=== PATIENT | female | born 1995 | race Hispanic/Latino ===

== ENCOUNTER 2018-04-19 20:14 | Emergency (ER) | payer SELFPAY ==
[2018-04-19 20:52] LABS: Urine Blood NEGATIVE (NEG); Urine Glucose NEGATIVE (NEG); Urine Protein NEGATIVE (NEG); Urine pH 5.5 (5.0-7.0)
[2018-04-19 21:00] LABS: Urine Bacteria <20 /HPF (<20); Urine Culture Reflex Order REFLEXED; Urine Mucus 1+ /HPF (NONE SEEN); Urine RBC <5 /HPF (NONE SEEN)
[2018-04-19 21:23] LABS: Absolute Lymphocytes (CBC) 1.8 K/uL (0.7-4.9); Absolute Monocytes 0.8 K/uL (0.1-1.3); Absolute Neutrophil 10.3 K/uL (1.8-8.0); Basophils % 0.3 % (0-1.3); Eosinophils % 0.8 % (0-4.4); Hematocrit 40.6 % (36.0-45.0); Lymphocytes % 14.1 % (15.3-44.8); MCH 29.4 pg (27.0-35.0); MCV 87.6 fL (80-100); MPV 9.2 fL (7.6-11.3); Monocytes % 5.8 % (3.3-12.3); RBC Red Blood Cell Count 4.64 M/uL (3.86-4.86)
--- NOTE | 2018-04-19 22:01 | RAD REPORT ---
EXAM DESCRIPTION: US - Transvaginal OB - 04/19/2018 9:40 pm CLINICAL HISTORY: with abdominal pain COMPARISON: None. FINDINGS: The uterus measures 7 x 4 x 5 centimeters. A gestational sac is present within the endom etrium whicjh measures 2.2 x.4 x.6 cm. Within this is a yolk sac and pole with a crown-rump ericka gth 2 mm. Cardiac activity 93 beats per minute The ovaries are normal in size and echotexture. No significant free fluid is seen. IMPRESSION: Single live intrauterine with an estimated gestational age 5 weeks 5 days H[facility]ACE 12/15/2017 Cardiac activity 93 beats per minute
[2018-04-19] MEDS ORDERED: CEFTRIAXONE/SWI 1gm 1 GM/10 ML SYR ONE (22:30)
[2018-04-19 22:50] LABS: BUN Blood Urea Nitrogen 5 mg/dL (7-18); Bicarbonate 27 mmol/L (21-32); Glucose Level 81 mg/dL (74-106); HCG, Quantitative 15284 mIU/mL (1-3); Potassium 3.4 mmol/L (3.5-5.1); Sodium Level 140 mmol/L (136-145)
--- NOTE | 2018-04-19 23:42 | EDPHYS ---
Physician Documentation [facility] Name: Citlali Limon Age: 22 yrs Sex: Female : 1995 Arrival Date: 04/19/2018 Time: 20:16 Bed 16 Private MD: ED Physician Tom Mccann HPI: 04/19 23:38 This 22 yrs old Female presents to ER via Ambulatory with complaints of pm1 Abdominal Pain. 23:38 The patient presents with abdominal pain suprapubic. Onset: The symptoms/episode pm1 began/occurred today. The symptoms do not radiate. Associated signs and symptoms: Pertinent negatives: nausea, vomiting, and diarrhea, chest pain, dysuria, fever, shortness of breath. The symptoms are described as crampy. Modifying factors: The symptoms are alleviated by nothing, the symptoms are aggravated by nothing. The patient has not experienced similar symptoms in the past. The patient has not recently seen a physician. has not taken a home test. 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 - Social history:: Smoking status: Patient/guardian denies using tobacco. - Ebola Screening: : No symptoms or risks identified at this time. ROS: 23:38 Constitutional: Negative for fever, chills, and weight loss, Eyes: Negative for injury, pm1 pain, redness, and discharge, ENT: Negative for injury, pain, and discharge, Neck: Negative for injury, pain, and swelling, Cardiovascular: Negative for chest pain, palpitations, and edema, Respiratory: Negative for shortness of breath, cough, wheezing, and pleuritic chest pain. 23:38 Back: Negative for injury and pain, : Negative for injury, bleeding, discharge, and swelling, MS/Extremity: Negative for injury and deformity, Skin: Negative for injury, rash, and discoloration, Neuro: Negative for headache, weakness, numbness, tingling, and seizure. 23:38 Abdomen/GI: Positive for abdominal cramps, of the suprapubic area. 23:38 : Negative for vaginal bleeding, vaginal discharge. Exam: 23:38 Constitutional: This is a well developed, well nourished patient who is awake, alert, pm1 and in no acute distress. Head/Face: Normocephalic, atraumatic. Neck: Trachea midline, no thyromegaly or masses palpated, and no cervical lymphadenopathy. Supple, full range of motion without nuchal rigidity, or vertebral point tenderness. No Meningismus. Chest/axilla: Normal chest wall appearance and motion. Nontender with no deformity. No lesions are appreciated. Cardiovascular: Regular rate and rhythm with a normal S1 and S2. No gallops, murmurs, or rubs. Normal PMI, no JVD. No pulse deficits. Respiratory: Lungs have equal breath sounds bilaterally, clear to auscultation and percussion. No rales, rhonchi or wheezes noted. No increased work of breathing, no retractions or nasal flaring. Abdomen/GI: Soft, non-tender, with normal bowel sounds. No distension or tympany. No guarding or rebound. No evidence of tenderness throughout. Back: No spinal tenderness. No costovertebral tenderness. Full range of motion. Skin: Warm, dry with normal turgor. Normal color with no rashes, no lesions, and no evidence of cellulitis. MS/ Extremity: Pulses equal, no cyanosis. Neurovascular intact. Full, normal range of motion. 23:38 Neuro: Orientation: is normal, Motor: is normal, moves all fours, Sensation: is normal, no obvious gross deficits, Gait: is steady, at a normal pace, without difficulty. Vital Signs: 20:23 BP 120 / 73; Pulse 92; Resp 18; Temp 98.6; Pulse Ox 97% on R/A; Weight 52.16 kg (R); ak1 Height 5 ft. 0 in. (152.40 cm); Pain 4/10; 21:23 BP 122 / 70; Pulse 90; Resp 17; Pulse Ox 99% ; bs1 22:23 BP 118 / 78; Pulse 88; Resp 16; Temp 98; Pulse Ox 100% on R/A; bs1 23:23 BP 120 / 70; Pulse 70; Resp 17; Pulse Ox 100% on R/A; bs1 20:23 Body Mass Index 22.46 (52.16 kg, 152.40 cm) ak1 MDM: 20:28 Patient medically screened. pm1 23:41 Data reviewed: vital signs. Data interpreted: Pulse oximetry: on room air is 100 %. pm1 Interpretation: normal. Counseling: I had a detailed discussion with the patient and/or guardian regarding: the historical points, exam findings, and any diagnostic results supporting the discharge/admit diagnosis, lab results, radiology results, the need for outpatient follow up, to return to the emergency department if symptoms worsen or persist or if there are any questions or concerns that arise at home. 04/19 20:33 Order name: Urine Microscopic Only; Complete Time: 21:24 pm1 04/19 20:38 Order name: Urine Dipstick--Ancillary (enter results); Complete Time: 20:57 mt 04/19 20:38 Order name: Urine --Ancillary (enter results); Complete Time: 20:57 mt 04/19 20:40 Order name: Quantitative Hcg; Complete Time: 23:37 pm1 04/19 20:40 Order name: Abo/rh Typing; Complete Time: 21:56 pm1 04/19 20:40 Order name: Basic Metabolic Panel; Complete Time: 23:37 pm1 04/19 20:33 Order name: Urine Dipstick-Ancillary (obtain specimen); Complete Time: 21:16 pm04/19 20:33 Order name: Urine Test (obtain specimen); Complete Time: 21:16 pm04/19 20:40 Order name: CBC with Diff; Complete Time: 21:24 pm04/19 20:40 Order name: IV Saline Lock; Complete Time: 21:15 pm04/19 20:40 Order name: US Transvaginal Ob; Complete Time: 22:05 pm04/19 21:02 Order name: Urine Culture EDCT 04/19 20:40 Order name: Labs collected and sent; Complete Time: 21:15 pm04/19 20:40 Order name: NPO; Complete Time: 21:15 pm1 Administered Medications: 22:33 Drug: Rocephin 1 grams Route: IV; Rate: calculated rate; Site: left antecubital; bs1 23:56 Follow up: IV Status: Completed infusion bs1 23:50 Drug: Potassium Chloride 40 mEq Route: PO; bs1 23:53 Follow up: Response: No adverse reaction bs1 Disposition: 04/20 07:18 Co-signature as Attending Physician, Tom Mccann MD. Disposition: 04/19/18 23:41 Discharged to Home. Impression: Urinary tract infection, site not specified. - Condition is Stable. - Discharge Instructions: and Urinary Tract Infection. - Prescriptions for Macrobid 100 mg Oral Capsule - take 1 capsule by ORAL route every 12 hours for 10 days; 20 capsule. - Medication Reconciliation Form, Thank You Letter, Antibiotic Education form. - Follow up: Emergency Department; When: As needed; Reason: Worsening of condition. Follow up: Private Physician; When: 2 - 3 days; Reason: Recheck today's complaints, Continuance of care, Re-evaluation by your physician. - Problem is new. - Symptoms have improved. Signatures: Dispatcher [employer] EDMS Aspen Sharpe, RN RN ak1 Mejia Ibarra, SEGMENTAL PAVER INSTALLER SEGMENTAL PAVER INSTALLER pm1 Tom Mccann MD MD Mago Carolnia RN RN bs1 Corrections: (The following items were deleted from the chart) 04/19 23:55 23:41 04/19/2018 23:41 Discharged to Home. Impression: Urinary tract infection, site bs1 not specified. Condition is Stable. Forms are Medication Reconciliation Form, Thank You Letter, Antibiotic Education, Prescription Opioid Use. Follow up: Emergency Department; When: As needed; Reason: Worsening of condition. Follow up: Private Physician; When: 2 - 3 days; Reason: Recheck today's complaints, Continuance of care, Re-evaluation by your physician. Problem is new. Symptoms have improved. pm1
--- NOTE | 2018-04-19 23:42 | ER ---
Nurse's Notes [facility] Name: Citlali Limon Age: 22 yrs Sex: Female : 1995 Arrival Date: 04/19/2018 Time: 20:16 Bed 16 Private MD: Diagnosis: Urinary tract infection, site not specified Presentation: 04/19 20:22 Presenting complaint: Patient states: abd cramps. nausea X1 month. pt LMP 03/02/18, pt ak1 late. Transition of care: patient was not received from another setting of care. Onset of symptoms is unknown. Risk Assessment: Do you want to hurt yourself or someone else? Patient reports no desire to harm self or others. Initial Sepsis Screen: Does the patient meet any 2 criteria? No. Patient's initial sepsis screen is negative. Does the patient have a suspected source of infection? No. Patient's initial sepsis screen is negative. Care prior to arrival: None. 20:22 Method Of Arrival: Ambulatory ak1 20:22 Acuity: RADHA 4 ak1 Triage Assessment: 20:23 General: Appears in no apparent distress. Behavior is calm, cooperative. Pain: ak1 Complains of pain in abdomen. EENT: No signs and/or symptoms were reported regarding the EENT system. Neuro: No deficits noted. Cardiovascular: No deficits noted. Respiratory: No deficits noted. GI: Reports lower abdominal pain, nausea. : No signs and/or symptoms were reported regarding the genitourinary system. Derm: No signs and/or symptoms reported regarding the dermatologic system. Musculoskeletal: No signs and/or symptoms reported regarding the musculoskeletal system. 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 - Social history:: Smoking status: Patient/guardian denies using tobacco. - Ebola Screening: : No symptoms or risks identified at this time. Screenin:24 Abuse screen: Denies threats or abuse. Denies injuries from another. Nutritional ak1 screening: No deficits noted. Tuberculosis screening: No symptoms or risk factors identified. Fall Risk None identified. Assessment: 22:01 General: Appears in no apparent distress. comfortable, Behavior is calm, cooperative, bs1 appropriate for age, quiet. Pain: Complains of pain in right lower quadrant Pain radiates to back. Neuro: Level of Consciousness is awake, alert, obeys commands, Oriented to person, place, time, situation, Appropriate for age. Cardiovascular: Denies chest pain, shortness of breath, Heart tones S1 S2 present Capillary refill < 3 seconds Patient's skin is warm and dry. Respiratory: Airway is patent Trachea midline Respiratory effort is even, unlabored, Respiratory pattern is regular, symmetrical, Breath sounds are clear bilaterally. GI: Abdomen is round non-distended, Bowel sounds present X 4 quads. Abdomen is tender to palpation in right lower quadrant Reports lower abdominal pain, nausea, vomiting. : No signs and/or symptoms were reported regarding the genitourinary system. EENT: No signs and/or symptoms were reported regarding the EENT system. Derm: Skin is intact, Skin is pink, warm \T\ dry. normal. Musculoskeletal: Circulation, motion, and sensation intact. Capillary refill < 3 seconds, Range of motion: intact in all extremities. 23:45 Reassessment: Patient appears in no apparent distress at this time. Patient and/or bs1 family updated on plan of care and expected duration. Pain level reassessed. Patient is alert, oriented x 3, equal unlabored respirations, skin warm/dry/pink. Patient states understanding of POC Patient states feeling better. Vital Signs: 20:23 BP 120 / 73; Pulse 92; Resp 18; Temp 98.6; Pulse Ox 97% on R/A; Weight 52.16 kg (R); ak1 Height 5 ft. 0 in. (152.40 cm); Pain 4/10; 21:23 BP 122 / 70; Pulse 90; Resp 17; Pulse Ox 99% ; bs1 22:23 BP 118 / 78; Pulse 88; Resp 16; Temp 98; Pulse Ox 100% on R/A; bs1 23:23 BP 120 / 70; Pulse 70; Resp 17; Pulse Ox 100% on R/A; bs1 20:23 Body Mass Index 22.46 (52.16 kg, 152.40 cm) ak1 ED Course: 20:16 Patient arrived in ED. es 20:23 Triage completed. ak1 20:23 Arm band placed on Patient placed in an exam room, on a stretcher, Patient notified of ak1 wait time. 20:24 Patient has correct armband on for positive identification. Bed in low position. Call ak1 light in reach. Side rails up X 1. 20:28 Mago Carolina, ANGELINE is Primary Nurse. bs1 20:28 Mejia Ibarra NP is PHCP. pm1 20:28 Tom Mccann MD is Attending Physician. pm1 20:55 Inserted saline lock: 22 gauge in left antecubital area, using aseptic technique. Blood bs1 collected. 21:40 US Transvaginal Ob In Process Unspecified. EDMS 23:54 No provider procedures requiring assistance completed. IV discontinued, bleeding bs1 controlled, No redness/swelling at site. Pressure dressing applied. Administered Medications: 22:33 Drug: Rocephin 1 grams Route: IV; Rate: calculated rate; Site: left antecubital; bs1 23:56 Follow up: IV Status: Completed infusion bs1 23:50 Drug: Potassium Chloride 40 mEq Route: PO; bs1 23:53 Follow up: Response: No adverse reaction bs1 Outcome: 23:41 Discharge ordered by MD. pm1 23:54 Discharged to home ambulatory, with friend. bs1 23:54 Condition: stable 23:54 Discharge instructions given to patient, Instructed on discharge instructions, follow up and referral plans. medication usage, Demonstrated understanding of instructions, follow-up care, medications, Prescriptions given X 1. 23:55 Patient left the ED. bs1 Signatures: Dispatcher [employer] Shyanne Taylor Amber, RN RN ak1 Mejia Ibarra NP CONDUIT HELPER pm1 Mago Carolina, ANGELINE RN bs1
[2018-04-19] MEDS ORDERED: POTASSIUM CL SA 10 MEQ TAB PO ONE (23:49)
== END 2018-04-19 23:55 | disposition home or self-care (01) ==
LOC: ER 20:14
DX: N39.0 Urinary tract infection, site not specified (principal)
CPT/HCPCS: 36415; 76817; 80048; 81003; 81015; 81025; 84702; 85025; 86900; 86901; 87086; 87088; 96365; 99284; J0696